=== PATIENT | female | born 1950 ===

== ENCOUNTER 2023-11-29 09:36 | Emergency (ER) ==
[~2023-11-29] VITALS: Ht 152.4 cm; Wt 72.7 kg
== END 2023-11-29 10:39 | disposition home or self-care (01) ==
LOC: COL.ER 09:36
DX: S00.06XA Insect bite (nonvenomous) of scalp, initial encounter (principal); W57.XXXA Bitten or stung by nonvenomous insect and other nonvenomous arthropods, initial encounter